=== PATIENT | male | born 1960 | race Caucasian/White ===

== ENCOUNTER 2024-04-02 09:44 | Day surgery (SDC) | payer BC ==
[2024-03-26 15:49] VITALS: BMI 32.6
[~2024-04-02 09:44] MED LIST: LACTATED RINGERS 1,000 ML IV SCH
[2024-04-02 10:28] LABS: Glucose,Whole Blood 248 mg/dL (70-110)
[2024-04-02] MEDS: LACTATED RINGERS 1,000 ML IV ONE (10:32)
[2024-04-02] MEDS ORDERED: PROPOFOL 10 MG/ML 20 ML VIAL IV ONE (11:16)
[2024-04-02 11:18] VITALS: RESP 16; TEMP 97.5
--- NOTE | 2024-04-02 11:35 | P.OP ---
Date of Procedure: 04/02/24 Preoperative Diagnosis: Internal and external hemorrhoids Postoperative Diagnosis: Large internal and external hemorrhoids Procedure(s) Performed: Colonoscopy Anesthesia: MAC Surgeon: Tony Caballero Pathology: none sent Condition: stable Disposition: PACU Description of Procedure: The patient's placed on the endoscopy table in the lateral position. He received IV sedation. Digital rectal exam was performed. This revealed large internal and external hemorrhoids. Flexible colonoscope was then placed patient anus and passed throughout the entire colon. The ileocecal valve was visualized. The cecum, ascending and transverse colon appeared normal. The descending and sigmoid colon appeared normal. The scope was then brought back into the rectum this appeared normal. Scope was then withdrawn to anus and large internal and external hemorrhoids are noted.
[2024-04-02 12:23] VITALS: BP 128/73; PULSE 84
== END 2024-04-02 13:14 | disposition home or self-care (01) ==
LOC: ORWHC2ENDO 09:44
PROVIDERS: ATTEND Surgery
DX: K64.4 Residual hemorrhoidal skin tags (principal); K64.8 Other hemorrhoids; K21.9 Gastro-esophageal reflux disease without esophagitis; N28.9 Disorder of kidney and ureter, unspecified; Z79.899 Other long term (current) drug therapy
CPT/HCPCS: 45378; J2704

== ENCOUNTER 2024-04-03 07:32 | Day surgery (SDC) | payer BC ==
[2024-03-26 18:38] VITALS: BMI 32.6
[~2024-04-03 07:32] MED LIST changes: +HYDROmorphone 0.5 MG/0.5 ML SYRINGE IVP PRN; -LACTATED RINGERS 1,000 ML IV SCH; +LIDOCAINE 1% (10MG/ML) FOR IV START INTRADERMA PRN; +MIDAZOLAM 2 MG/2 ML VIAL IV PRN; +Pre Op ABX Message 1 EACH MISC MISCELLANE ONE
[2024-04-03] MEDS: LACTATED RINGERS 1,000 ML IV SCH (08:30)
[2024-04-03 08:36] LABS: Glucose,Whole Blood 182 mg/dL (70-110)
[2024-04-03] MEDS: HEPARIN SODIUM,PORCINE 5,000 UNIT/ML 1 ML VIAL SQ PRN (08:36)
[2024-04-03] MEDS: ACETAMINOPHEN TAB 500 MG TAB PO PRN (08:36)
[2024-04-03] MEDS: DEXAMETHASONE SOD PHOSPHATE 4 MG/ML 1 ML VIAL IV ONE (08:36)
[2024-04-03] MEDS: ONDANSETRON 4 MG/2 ML VIAL IVP ONE (08:37)
[2024-04-03] MEDS ORDERED: ceFAZolin 1 GM/50 ML BAG (PMX) ONE (09:04)
[2024-04-03] MEDS ORDERED: fentaNYL (PF) 50 MCG/ML 2 ML AMP ONE (09:04)
[2024-04-03] MEDS ORDERED: MIDAZOLAM 2 MG/2 ML VIAL ONE (09:04)
[2024-04-03] MEDS ORDERED: KETOROLAC 15 MG/ML 1 ML VIAL ONE (09:04)
[2024-04-03] MEDS ORDERED: KETAMINE HCL IN 0.9 % NACL 50 MG/5 ML SYRINGE ONE (09:04)
[2024-04-03] MEDS ORDERED: PROPOFOL 10 MG/ML 20 ML VIAL IV ONE (09:04)
[2024-04-03] MEDS ORDERED: LIDOCAINE 1% INJ 10MG/ML (20 ML MDV) ONE (09:04)
[2024-04-03] MEDS ORDERED: SUCCINYLCHOLINE CHLORIDE 200 MG/10 ML VIAL IV ONE (09:04)
[2024-04-03] MEDS: SODIUM CHLORIDE 0.9% 50 ML with ceFAZolin 2,000 MG IV ONE (09:09)
[2024-04-03] MEDS: LIDOCAINE 1%-EPI 1:100,000 20 ML VIAL SQ ONE ×2 (09:29→09:56)
--- NOTE | 2024-04-03 10:21 | P.OP ---
Date of Procedure: 04/03/24 Preoperative Diagnosis: Internal and external hemorrhoids Postoperative Diagnosis: internal and external hemorrhoids Procedure(s) Performed: internal and external hemorrhoidectomy Anesthesia: RUBÉN Surgeon: Tony Caballero Estimated Blood Loss (ml): 5 Pathology: other (hemorrhoids) Condition: stable Disposition: PACU Description of Procedure: the patient's placed on the operative table in the prone jackknife position after receiving general endotracheal. His anus was prepped and draped usual fashion. Patient had very large internal/external hemorrhoids. Using the anal retractor the left lateral hemorrhoidal column was visualized. The hemorrhoid column was grasped. Allis clamps. Using the Harmonic scissors the hemorrhoid was performed. The right anterior hemorrhoidal column was removed in identical fashion.. Several small bleeding points were suture ligated with 3-0 Vicryl suture. There is no bleeding seen. The anus was then packed with Gelfoam. Patient top she will. He was sent to recovery room in stable condition.
[2024-04-03 10:39] VITALS: TEMP 96.8
[2024-04-03 10:56] LABS: Glucose,Whole Blood 244 mg/dL (70-110)
[2024-04-03 11:36] VITALS: BP 143/83; PULSE 92; RESP 16
== END 2024-04-03 11:54 | disposition home or self-care (01) ==
LOC: OR 07:32
PROVIDERS: ATTEND Surgery
DX: K64.4 Residual hemorrhoidal skin tags (principal); K64.8 Other hemorrhoids; E78.5 Hyperlipidemia, unspecified; E11.9 Type 2 diabetes mellitus without complications; K21.9 Gastro-esophageal reflux disease without esophagitis; Z98.890 Other specified postprocedural states; Z79.899 Other long term (current) drug therapy
CPT/HCPCS: 88304; 46255; J2250; J0330; J1644; J1100; J2405; J0690 ×2; J2001; J3010; J1885; J2704